=== PATIENT | male | born 1995 | race Two or more races ===

== ENCOUNTER 2022-10-14 10:20 | Emergency (ER) | payer SELFPAY ==
[~2022-10-14] VITALS: Ht 167.6 cm; Wt 86.7 kg
[2022-10-14 10:28] VITALS: BP 142/92
== END 2022-10-14 12:26 | disposition home or self-care (01) ==
LOC: ER 10:20
DX: S02.32XA Fracture of orbital floor, left side, initial encounter for closed fracture (principal); Y04.2XXA Assault by strike against or bumped into by another person, initial encounter; Y93.89 Activity, other specified; Y92.89 Other specified places as the place of occurrence of the external cause; Y99.8 Other external cause status
CPT/HCPCS: 70486